=== PATIENT | male | born 1945 | race Caucasian/White ===

== ENCOUNTER 2020-04-23 22:54 | Observation (INO) | payer MEDICARE, BC ==
[~2020-04-23] VITALS: Ht 177.8 cm; Wt 74.9 kg
--- NOTE | 2020-04-23 22:55 | NUR ---
BY EMS TO ROOM
[2020-04-23] MEDS ORDERED: [UNRECOGNIZED DRUG - OTHER] PO (23:22)
[2020-04-23 23:32] LABS: HEMATOCRIT 39.4 % (39.0-50.0); HEMOGLOBIN 13.3 g/dl (14.0-18.0); IMMATURE GRANULOCYTES 0.4 % (0.0-5.0); MEAN CELL VOLUME 93.8 fL CALC (80.0-100.0); MEAN CORPUSCULAR HGB 31.7 pG CALC (26.0-32.0); MEAN CORPUSCULAR HGB CONC 33.8 g/dL CAL (32.0-36.0); NEUT# 2.11 thou/uL (1.82-7.42); RED BLOOD COUNT 4.2 mill/uL (4.70-6.10); RED CELL DISTRI WIDTH 12.8 % (11.5-15.5)
[2020-04-23 23:33] LABS: GFR > 60 ML/MIN (>=60 (CALC)); GFR FOR AFR.AMER. > 60 ML/MIN (>=60 (CALC))
[2020-04-23 23:50] LABS: PROTHROMBIN TIME 10.2 SECONDS (9.0-12.5)
[2020-04-23 23:51] LABS: ALKALINE PHOSPHATASE 45 u/l (38-126); AMYLASE 502 u/l (30-110); ANION GAP 11 (6-22 (CALC)); BILIRUBIN, TOTAL 0.3 mg/dL (0.0-1.4); BUN 16 mg/dL (8-23); BUN/CREATININE RATIO 18 (12-20 (CALC)); CARBON DIOXIDE 29 mmol/l (22-30); CHLORIDE 105 mmol/l (95-108); CREATININE 0.9 mg/dL (0.7-1.3); ETHYL ALCOHOL 50 mg/dl (0-30); POTASSIUM 3.9 mmol/l (3.5-5.1); SGOT/AST 89 u/l (19-48); SODIUM 141 mmol/l (137-146); TOTAL PROTEIN 6.8 g/dL (6.3-8.2)
--- NOTE | 2020-04-23 23:55 | NUR ---
PT RETURNED FROM RADIOLOGY, NO C/O PAIN OR DISCOMFRT, NO S/S OF DISTRESS NOTED, RESPIRATIONS EVEN AND UNLABORED, AWAKE AND ALERT, FAMILY AT BEDSIDE.
[2020-04-24 00:02] LABS: LIPASE 9408 u/l (23-300)
--- NOTE | 2020-04-24 00:44 | NUR ---
PATIENT RESTING QUIETLY, AWAITING DIAGNOSTIC RESULTS, NO C/O PAIN OR DISCOMFORT, NO S/S OF DISTRESS NOTED, RESPIRATIONS EVEN AND UNLABORED.
--- NOTE | 2020-04-24 01:28 | NUR ---
PATIENT ABLE TO AMBULATE INDEPENDENTLY TOT HE BATHROOM, FAMILY AT BEDSIDE.
--- NOTE | 2020-04-24 01:28 | NUR ---
LAB AT [facility] TO DRAW REPEAT LACTIC ACID
[2020-04-24 01:44] LABS: URINE BILIRUBIN - DIPSTICK NEGATIVE (NEGATIVE); URINE BLOOD DIPSTICK NEGATIVE (NEGATIVE); URINE COLOR YELLOW; URINE GLUCOSE - DIPSTICK NEGATIVE (NEGATIVE); URINE KETONE NEGATIVE (NEGATIVE); URINE LEUK ESTERASE NEGATIVE (NEGATIVE); URINE NITRITE - DIPSTICK NEGATIVE (Negative); URINE PH 5.5 (4.5-8.0); URINE PROTEIN - DIPSTICK NEGATIVE (NEG-TRACE); URINE UROBILINOGEN - DIPSTICK 0.2 E.U./dL (0.2)
--- NOTE | 2020-04-24 01:49 | NUR ---
PATIENT TO ULTRASOUND.
--- NOTE | 2020-04-24 02:44 | NUR ---
PATIENT RETURNED FRO ULTRASOUND AWAITING INPATIENT BED ASSIGNMENT.
--- NOTE | 2020-04-24 02:54 | NUR ---
ATTEMPTED TO GIVE REPORT FOR INPATIENT TREATMENT, NURSE UNAVAILABLE.
--- NOTE | 2020-04-24 03:02 | NUR ---
HAND OFF REPORT GIVEN TO WILMER
--- NOTE | 2020-04-24 03:08 | NUR ---
PT RECEIVED FROM ED TO ROOM 272. ARRIVES VIA WHEEL CHAIR ACCOMPANIED BY REYNA KENNEY. PT AMBULATORY TO BED. GAIT STEADY AND BALANCED. PT DENIES PAIN AT THIS TIME. ORIENTED TO UNIT, ROOM, CALL JOSE, LIGHTS, TV. ICE WATER PROVIDED. CALL JOSE WITHIN REACH. AGREES TO CALL PRN.
[2020-04-24 03:26] VITALS: BP 131/80
--- NOTE | 2020-04-24 03:30 | NUR ---
PHYSICAL ASSESMENT COMPLETE. PT CURRENTLY DENIES PAIN OR DISCOMFORT. SCHEDULED MEDICATIONS AND PRN MEDICATION ADMINISTERED, SEE E-MAR. PT DENIES ANY NEEDS AT THIS TIME. PLAN OF CARE REVIEWED, PT DENIES QUESTIONS, VERBALIZES UNDERSTANDING. ITEMS WITHIN REACH, BED LOCKED IN LOW POSITION W/ BEDRAILS UP X2. CALL JOSE WITHIN REACH, AGREES TO CALL PRN.
--- NOTE | 2020-04-24 07:05 | NUR ---
REPORT RECEIVED FROM ANNE MARIE GUILLEN.
[2020-04-24 07:57] VITALS: BP 145/88
--- NOTE | 2020-04-24 08:00 | NUR ---
PT RESTING IN SEMI FOWLERS POSITION,A&O X3;VS OBTAINED AND ASSESSMENT COMPLETED;PT DENIES ANY CURRENT PAIN OR DISCOMFORTS,PAIN SCALE AND REPORTING EDUCATED;RESPIRATIONS EVEN AND UNLABORED ON RA,CLEAR LUNG SOUNDS;ABDOMEN DISTENDED/SOFT ON PALPATION AND ACTIVE IN ALL 4 QUADRANTS;STRONG PEDAL PULSES;SKIN INTACT;EMS #20G TO LAC INFUSING NS @ 100ML/HR,SITE APPEARS HEALTHY;CLEAR LIQUID DIET REINFORCED;PT DENIES ANY ADDITIONAL NEEDS AND IS ENCOURAGED TO CALL FOR ASSISTANCE IF NEEDED;FALL PRECAUTIONS IN PLACE WITH BED IN THE LOWEST POSITION AND CALL LIGHT IN REACH;WILL CONTINUE TO MONITOR
--- NOTE | 2020-04-24 08:49 | NUR ---
FORTINO TAPIA AT BEDSIDE DISCUSSING POC.
--- NOTE | 2020-04-24 08:49 | NUR ---
RT AT BEDSIDE ADMINISTERING BREATHING TX.
--- NOTE | 2020-04-24 09:28 | NUR ---
CALLED REGARDING THIS PT FOR CONSULTATION OF PANCREATITIS AND GALLSTONES.
--- NOTE | 2020-04-24 10:05 | NUR ---
AT BEDSIDE DISCUSSING POC.
[2020-04-24] MEDS ORDERED: PROTONIX40 M2 PO (10:13)
--- NOTE | 2020-04-24 10:50 | NUR ---
ALL DISCHARGE INSTRUCTIONS PRIVIDED AT THIS TIME;RX FOR PROTONIX PROVIDED AND PT EDUCATED TO TAKE DIRECTED. BUSINESS CARDS PROVIDED FOR AND , PT INSTRUCTED TO F/U WITH BOTH NEXT WEEK, ADVANCE DIET SLOWLY AND LOW FAT DIET;PT DENIES ANY ADDITIONAL QUESTIONS OR NEEDS;IV SITE REMOVED WITH CATHETER INTACT;WHEELCHAIR TO BE PROVIDED FOR D/C HOME;[facility] TO TRANSPORT PT HOME;WILL CONTINUE TO MONITOR
--- NOTE | 2020-04-24 11:25 | NUR ---
Discharge instructions given. Patient verbalizes understanding of same. Discharged in stable condition via Ambulatory to Home with spouse. All belongings sent with pt. PT REFUSES WHEELCHAIR FOR D/C HOME;PT AMBULATED WITH A STEADY GAIT TO [facility].ALL BELONGINGS LEFT WITH PT AT THIS TIME INCLUDING RX FOR PROTONIX. SPOUSE TO TRANSPORT PT HOME.
[2020-04-30] MEDS ORDERED: APRISO0.375 GM PO (13:06)
[2020-04-30] MEDS ORDERED: PROTONIX40 M2 PO (13:06)
== END 2020-04-24 11:26 | disposition home or self-care (01) ==
LOC: ED 22:54 → ED-I 04-24 02:29 → ED 04-24 02:37 → MS2 04-24 02:38
PROVIDERS: ADMIT Internal Medicine; ATTEND Internal Medicine
DX: K85.10 Biliary acute pancreatitis without necrosis or infection (principal); K85.20 Alcohol induced acute pancreatitis without necrosis or infection; K80.20 Calculus of gallbladder without cholecystitis without obstruction; K20.90 Esophagitis, unspecified without bleeding; K22.8 Other specified diseases of esophagus; K44.9 Diaphragmatic hernia without obstruction or gangrene; K51.90 Ulcerative colitis, unspecified, without complications; Z20.828 Contact with and (suspected) exposure to other viral communicable diseases
CPT/HCPCS: Q9967; S0164

== ENCOUNTER 2020-05-05 06:59 | Day surgery (SDC) | payer MEDICARE, BC ==
[~2020-05-05 06:59] MED LIST: APRISO0.375 GM PO; EYE DROP3 OU; PEPCID20 MG PO; PROTONIX40 M2 PO; [UNRECOGNIZED DRUG - OTHER] PO
[2020-05-05] MEDS ORDERED: PERCOCET 5/325M1 TAB PO (10:11)
[2020-05-05 11:13] VITALS: BP 146/86
== END 2020-05-05 11:15 | disposition home or self-care (01) ==
LOC: ORM 06:59
PROVIDERS: ATTEND Surgery
PROC: 0FT44ZZ Resection of Gallbladder, Percutaneous Endoscopic Approach (ICD-10-PCS; principal; 2020-05-05)
PROC: BF001ZZ Plain Radiography of Bile Ducts using Low Osmolar Contrast (ICD-10-PCS; 2020-05-05)
PROC: 0DJ08ZZ Inspection of Upper Intestinal Tract, Via Natural or Artificial Opening Endoscopic (ICD-10-PCS; 2020-05-05)
DX: K80.10 Calculus of gallbladder with chronic cholecystitis without obstruction (principal); K44.9 Diaphragmatic hernia without obstruction or gangrene; Z20.822 Contact with and (suspected) exposure to COVID-19
CPT/HCPCS: J0131; J1100; J1610; Q9967

== ENCOUNTER 2024-05-12 08:53 | Emergency (ER) | payer OTHER, MEDICARE, BC ==
[~2024-05-12] VITALS: Ht 177.8 cm; Wt 72.0 kg
[~2024-05-12 08:53] MED LIST changes: +PERCOCET 5/325M1 TAB PO
[2024-05-12 09:03] VITALS: BP 144/81
[2024-05-12 09:31] VITALS: BP 117/67
[2024-05-12 10:59] VITALS: BP 117/67
== END 2024-05-12 11:05 | disposition short-term general hospital (02) | DRG 125 ==
LOC: ED 08:53
DX: H33.22 Serous retinal detachment, left eye (principal)